=== PATIENT | female | born 2005 | race Asian ===

== ENCOUNTER 2025-03-04 14:04 | Emergency (ER) | payer BC, SELFPAY ==
[2025-03-04] VITALS (12 sets, daily range): BP systolic 88–122; BP diastolic 56–75; PULSE 77–95; RESP 16–18; TEMP 37.2; O2SAT 98–100; BMI 18.8
--- NOTE | 2025-03-04 14:34 | ED.GENADULT ---
HPI - General Adult General Date Seen: 03/04/25 Chief complaint: Abdominal Pain Stated complaint: abdominal cramps Time Seen by Provider: 03/04/25 14:07 History of Present Illness HPI narrative: 19-year-old female presenting to the ER today for evaluation of lower abdominal cramping an episode of presyncope and nausea that occurred during her shower. She is currently on her menstrual cycle. She is generally healthy. No history of diabetes, immunosuppression, seizures, heart disease. She has had trouble with painful and heavy menstrual cycles for the past several months and is currently in the beginning of workup with her regular doctor to sort that out. She did not want to go on control pills so she started taking ibuprofen with her. Is a couple months ago. She is due for a checkup in a few weeks. Her most recent period started yesterday and this is a normal predicted time for her. . Yesterday was fairly light, she had 3 pads that she had change. Today the bleeding is little bit heavier, as it often is on her 2nd day.. She has changed to a 3 pads today. Yesterday she was feeling a little bit unwell with some nausea and headache. This morning she continued to feel nauseous. She got into the shower. She was in the shower when she started to feel very lightheaded and more nauseous and she felt like she is going to black out. She had increasing pain in crampy pain across her lower pelvis and her lower low back. No other symptoms. No fevers. No cough. No sore throat. No trouble breathing. No trouble with urination. No flank pain. Bowel movements have been normal. No black or bloody stools. Her vaginal bleeding has been dark red with small clots. No brownish or purulent bleeding. She has 100% confident she is not . Related Data Home Medications ?Medication ?Instructions ?Recorded ?Confirmed No Known Home Medications 03/04/25 03/04/25 Allergies Allergy/AdvReac Type Severity Reaction Status Date / Time amoxicillin Allergy Intermediate Verified 03/04/25 14:27 Penicillins Allergy Intermediate Verified 03/04/25 14:27 [facility] PFS Social History Smoking Status: Never smoker Do you use any of these nicotine containing products: None Second hand tobacco smoke exposure: No How often do you have a drink containing alcohol: never AUDIT-C Alcohol total score: 0 Non-prescribed substance use: denies use Exam Narrative: Exam Narrative: Constitutional: Appears well-developed and well-nourished. Alert. Conversant. Uncomfortable but polite . Tearful HENT: Head: Atraumatic. Nose: Nose normal. Mouth/Throat: Oral mucosa is clear and moist. no trismus. Pharynx normal. Eyes: Conjunctivae normal. EOM normal. Pupils equal, round, and reactive to light. No scleral icterus. Neck: Normal range of motion. Neck supple. No tracheal deviation present. Cardiovascular: Normal rate, regular rhythm. No gallop. No friction rub. No murmur heard. Symmetric radial artery pulses Pulmonary/Chest: Effort normal. No stridor. No respiratory distress. No wheezes. No rales. No rhonchi . No tenderness. Abdominal: Soft. Bowel sounds normal. No distension. No mass. Right lower quadrant, suprapubic, left lower quadrant tenderness. No rebound. No guarding. No CVA tenderness Musculoskeletal: RUE: Normal range of motion. No tenderness. No deformity LUE: Normal range of motion. No tenderness. No deformity RLE: Normal range of motion. No edema. No tenderness. No deformity LLE: Normal range of motion. No edema. No tenderness. No deformity Neurological: Alert and oriented to person, place, and time. Normal strength. CN II-VII intact. No sensory deficit. GCS eye subscore is 4. GCS verbal subscore is 5. GCS motor subscore is 6. Normal coordination Skin: Skin is warm and dry. No rash noted. No pallor. Normal capillary refill. Psychiatric: Normal mood. Normal affect. Const: Vital Signs, click to edit/add: Vital Signs - 24 hr 03/04/25 14:28 03/04/25 16:18 03/04/25 16:19 Temperature 98.9 F Pulse Rate 87 77 Pulse Rate [Pulse Oximeter] 92 Respiratory Rate 16 18 Blood Pressure 96/59 L Blood Pressure [Ri ght Upper Arm] 122/75 Pulse Oximetry 98 100 100 Oxygen Delivery Me thod Room Air Room Air 03/04/25 16:30 03/04/25 16:45 03/04/25 17:00 Temperature Pulse Rate 78 90 89 Pulse Rate [Pulse Oximeter] Respiratory Rate Blood Pressure Blood Pressure [Ri ght Upper Arm] Pulse Oximetry 100 99 99 Oxygen Delivery Me thod 03/04/25 17:15 03/04/25 17:16 03/04/25 17:21 Temperature Pulse Rate 84 86 95 Pulse Rate [Pulse Oximeter] Respiratory Rate Blood Pressure 91/56 L 88/59 L Blood Pressure [Ri ght Upper Arm] Pulse Oximetry 99 100 100 Oxygen Delivery Me thod 03/04/25 17:30 03/04/25 17:41 03/04/25 17:45 Temperature Pulse Rate 77 85 80 Pulse Rate [Pulse Oximeter] Respiratory Rate Blood Pressure 103/62 Blood Pressure [Ri ght Upper Arm] Pulse Oximetry 100 100 99 Oxygen Delivery Me thod Course Course ED Course: Recheck-feeling tremendously better after Toradol and Zofran. Says her pain is completely resolved. No further dizziness. Repeated abdominal exam reveals no ongoing tenderness. No CVA tenderness. Vital Signs Vital signs: Initial Vital Signs Temperature 98.9 F 03/04/25 14:28 Temperature Source Temporal Artery Scan 03/04/25 14:28 Pulse Rate 92 03/04/25 14:28 Respiratory Rate 16 03/04/25 14:28 Blood Pressure 122/75 03/04/25 14:28 Blood Pressure Mean 90 03/04/25 14:28 Pulse Oximetry 98 03/04/25 14:28 Oxygen Delivery Method Room Air 03/04/25 14:28 Vital Signs Temperature 98.9 F 03/04/25 14:28 Pulse Rate 92 03/04/25 14:28 Respiratory Rate 16 03/04/25 14:28 Blood Pressure 122/75 03/04/25 14:28 Pulse Oximetry 98 03/04/25 14:28 Oxygen Delivery Method Room Air 03/04/25 14:28 Temperature 98.9 F 03/04/25 14:28 Pulse Rate 80 03/04/25 17:45 Respiratory Rate 18 03/04/25 16:18 Blood Pressure 103/62 03/04/25 17:41 Pulse Oximetry 99 03/04/25 17:45 Oxygen Delivery Method Room Air 03/04/25 16:18 Medications Administered Medications: Discontinued Medications Generic Name Dose Route Start Last Admin Trade Name Freq PRN Reason Stop Dose Admin Sodium Chloride 1,000 mls @ 1,000 mls/hr 03/04/25 15:30 03/04/25 15:33 0.9 % Sodium Chloride 1000 Ml IV 05/17/25 16:29 1,000 mls/hr .Q1H NIR Administration Ketorolac Tromethamine 15 mg 03/04/25 15:18 03/04/25 15:32 Ketorolac 15 Mg/Ml Inj IVP 03/04/25 15:19 15 mg ONCE ONE Administration Ondansetron HCl 4 mg 03/04/25 15:18 03/04/25 15:33 Ondansetron 2 Mg/Ml Inj IVP 03/04/25 15:19 4 mg ONCE ONE Administration Medical Decision Making MDM Narrative Medical decision making narrative: Presented to the Emergency Department with bilateral lower pelvic cramping in the setting of her menstrual cycle which led to a presyncopal episode in the shower this morning.. The differential diagnosis of abdominal pain includes: Gynecologic pathology such as ovarian cyst, cyst rupture, hemorrhagic cyst, complication, ectopic, miscarriage, as well as non gynecologic pathology such as Appendicitis, Bowel Obstruction, Diverticulitis, Pancreatitis, UTI, kidney stone, Enteritis/Colitis, amongst many other etiologies. Really not much upper abdominal pain to raise concern for cholecystitis or gastritis or ulcer. Laboratory testing does not reveal a cause for the patient's pain but does show leukocytosis. Fortunately hemoglobin is normal. test is negative.. Pelvic ultrasound is noted to be normal. Given leukocytosis, I give strong consideration to further imaging with CT scan. However on repeat exam the patient's pain is completely resolved and she is feeling much better. Using a process of shared decision making we decided to hold off on further imaging. The exact etiology of the abdominal pain is not clear at this time. No life threatening cause or need for emergent surgery or hospital admission is detected today. The patient was advised that if symptoms do not completely resolve within another 12-24 hours re-evaluation with primary care or return to the ED is indicated. The patient also understands that if they worsen, they should return to the ER right away. I discussed the uncertainty about the diagnosis and answered the patient's questions. Abdominal pain return precautions discussed. Patient will follow-up with her regular doctor for recheck and is already in the process of working up why she is having such painful menstrual cycles. Provided with a digital copies of her ultrasound to help facilitate that workup. Lab Data Labs: Lab Results 03/04/25 03/04/25 Range/Units 15:20 15:30 WBC 16.59 H (4.50-11.00) K/uL RBC 4.45 (4.00-5.20) m/uL Hgb 13.9 (12.0-16.0) gm/dL Hct 40.4 (33.0-51.0) % MCV 91 (80-100) fL MCH 31 (26-34) pg MCHC 34 (32-36) gm/dL RDW Coeff of [place] 11.2 L (11.5-15.5) % Plt Count 341 (140-440) K/uL Neut % (Auto) 90.2 H (42.0-72.0) % Lymph % (Auto) 6.0 L (20-44) % [place] % (Auto) 3.4 (0.0-11.0) % Eos % (Auto) 0.0 (0.0-7.0) % Baso % (Auto) 0.3 (0.0-3.0) % Neut # (Auto) 15.00 H (1.7-7.0) K/uL Lymph # (Auto) 1.00 (0.90-2.90) K/uL [place] # (Auto) 0.60 (0.00-0.90) K/UL Eos # (Auto) 0.00 (0.00-0.50) K/uL Baso # (Auto) 0.00 (0.00-0.30) K/uL Abs Immat Gran (auto) 0.00 (0.00-0.30) K/uL Imm/Tot Granulo (auto) 0.1 % Sodium 142 (135-149) mmol/L Potassium 3.7 (3.6-5.1) mmol/L Chloride 105 (96-114) mmol/L Carbon Dioxide 27 (20-32) mmol/L Anion Gap 10 (7-15) mEq/L BUN 10 (5-24) mg/dL Creatinine 0.6 (0.6-1.2) mg/dL Estimated Creat Clear 100.43 Estimated GFR 133 ml/min Glucose 79 (60-115) mg/dL Lactate 2.0 H (0.5-1.9) mmol/L Calcium 9.8 (8.7-10.8) mg/dL Urine Color Yellow (Yellow) Urine Appearance Clear (Clear) Urine pH 7.0 (5.0-8.5) Ur Specific [place] 1.020 (1.000-1.030) Urine Protein 1+ A (Negative) Urine Glucose (UA) Negative (Negative) Urine Ketones 4+ A (Negative) Urine Blood 3+ A (Negative) Urine Nitrite Negative (Negative) Urine Bilirubin 1+ A (Negative) Urine Urobilinogen 1.0 (0.2-1.0) Ur Leukocyte Esterase Negative (Negative) Urine RBC 2-5 A (0-2) Urine WBC 5-10 A (0-5) Urine WBC Clumps None (None) Ur Squamous Epith Cells None (None-Few) Urine Bacteria Few A (None) Urine HCG, Qual Negative (Negative) Imaging Data U.S. pelvis: Attestation: I have reviewed the pertinent imaging results. My impression: Preliminary verbal report from the special procedures technologist is a small amount of free fluid in the right adnexa. Otherwise normal ECG Data Attestation: I personally reviewed and interpreted this ECG as follows: Interpretation: Normal sinus rhythm Rate: 84 MN: 140 QRS axis: Normal axis. ST segment/T wave: No acute ST segment elevation or depression QTc: 434 Discharge Plan Discharge Clinical Impression: Pelvic pain Patient Disposition: Home, Self-Care Instructions: Pelvic Pain (ED) Additional Instructions: As we discussed, so far your workup looks reassuring but is nondiagnostic as to the exact cause of your pain. Please come back to the ER immediately if you have any worsening symptoms such as recurring pain, lightheadedness, dizziness, fever, or if you have any other problems. Even if you are getting better, please recheck with your regular doctor in clinic next week. If you have mild pain it is okay to use ibuprofen or acetaminophen as needed. Prescriptions: No Action No Known Home Medications Follow Up/Referrals: Provider,Not a Local [Primary Care Provider] - Stand Alone Forms: [employer] Info Instructions
--- NOTE | 2025-03-04 15:18 | CRLHL7_ITS ---
For Patients: As a result of the Century Cures Act, medical imaging exams and procedure reports are released immediately into your electronic medical record. You may view this report before your referring provider. If you have questions, please contact your health care provider. INDICATION: Pain. Cramping. FINDINGS: Transvaginal imaging. Normal-appearing myometrium. Uterus size 7 x 3 x 4 cm. Endometrial thickness 5 mm with well-defined junctional zone. No endometrial mass, fluid or hemorrhage. Benign appearing ovaries. Normal color Doppler ovarian blood flow bilaterally. Physiologic follicles in each with none greater than a cm. Trace physiologic retrouterine free fluid. IMPRESSION: Unremarkable transvaginal assessment of female pelvis. Dictated by German Spencer MD @ 03/04/2025 4:47:01 PM (Electronically Signed)
[2025-03-04 15:27] LABS: Appearance Urine Clear (Clear); Bilirubin Urine 1+ (Negative); Blood Urine 3+ (Negative); Color Urine Yellow (Yellow); Glucose Urine Negative (Negative); Ketones Urine 4+ (Negative); Leukocyte Esterase Urine Negative (Negative); Nitrite Urine Negative (Negative); Protein Urine 1+ (Negative)
[2025-03-04] MEDS: KETOROLAC 15 MG/ML inj IVP (15:32)
[2025-03-04] MEDS: 0.9 % SODIUM CHLORIDE 1000 ml 1,000 ML IV (15:33)
[2025-03-04] MEDS: ONDANSETRON 2 MG/ML inj 4 MG IVP (15:33)
[2025-03-04 15:44] LABS: Basophils Percent Auto 0.3 % (0.0-3.0); Hematocrit 40.4 % (33.0-51.0); Hemoglobin* 13.9 gm/dL (12.0-16.0); Immature Granulocytes Pct Auto 0.1 %; Mean Corpuscular HGB Conc 34 gm/dL (32-36); Mean Corpuscular Hemoglobin 31 pg (26-34); Mean Corpuscular Volume 91 fL (80-100); Monocytes Percent Auto 3.4 % (0.0-11.0); Neutrophils Percent Auto 90.2 % (42.0-72.0); Platelet Count* 341 K/uL (140-440); RDW Coefficient of Variation % 11.2 % (11.5-15.5); Red Blood Count 4.45 m/uL (4.00-5.20); White Blood Count* 16.59 K/uL (4.50-11.00)
[2025-03-04 15:45] LABS: Ur HCG Qualitative* Negative (Negative)
[2025-03-04 15:49] LABS: Slide Review Reflex No
[2025-03-04 15:50] LABS: Bacteria Urine Few
[2025-03-04 15:56] LABS: Chloride* 105 mmol/L (96-114); Potassium* 3.7 mmol/L (3.6-5.1); Sodium* 142 mmol/L (135-149)
[2025-03-04 15:59] LABS: Anion Gap 10 mEq/L (7-15); Blood Urea Nitrogen* 10 mg/dL (5-24); Carbon Dioxide* 27 mmol/L (20-32); Creatinine* 0.6 mg/dL (0.6-1.2); Est. Creatinine Clearance* 100.43; Estimated Glomerular Filt Rate 133 ml/min
[2025-03-04 16:00] LABS: Calcium* 9.8 mg/dL (8.7-10.8); Glucose* 79 mg/dL (60-115)
== END 2025-03-04 18:46 | disposition home or self-care (01) ==
PROVIDERS: Emergency Provider Emergency Medicine
DX: R10.2 Pelvic and perineal pain (principal)
CPT/HCPCS: 36415; 76830; 80048; 81001; 81025; 83605; 85025; 87086; 93005; 93976; 96374; 96375; 99283; 99284; J1885; J2405; J7030